=== PATIENT | female | born 1965 | race Caucasian/White ===

== ENCOUNTER 2018-03-01 10:28 | Day surgery (SDC) | payer OTHER ==
[2018-03-01] MEDS ORDERED: LIDOCAINE 100 MG SYRINGE (12:13)
[2018-03-01] MEDS ORDERED: PROPOFOL 40 ML (12:13)
== END 2018-03-01 16:10 | disposition home or self-care (01) ==
LOC: GIL 10:28
DX: Z12.11 Encounter for screening for malignant neoplasm of colon (principal); R19.4 Change in bowel habit; R10.9 Unspecified abdominal pain; Z98.1 Arthrodesis status
CPT/HCPCS: 45384